=== PATIENT | male | born 1955 | race Caucasian/White ===

== ENCOUNTER 2020-05-28 09:22 | Emergency (ER) | payer BC ==
[2020-05-28 11:37] LABS: HEMOGLOBIN 10.6 gm/dl (14.0-17.5); RED BLOOD COUNT 3.48 M/UL (4.20-5.50); WHITE BLOOD COUNT 5.2 K/UL (4.5-11.0)
[2020-05-28 11:59] LABS: BUN/CREATININE RATIO 17 (0-10)
[2020-05-28] MEDS ORDERED: LEVOFLOXACIN750 MG PO (16:16)
[2020-05-28] MEDS ORDERED: VIBRAMYCIN 100100 MG PO (16:16)
== END 2020-05-28 16:27 | disposition home or self-care (01) ==
LOC: ER1 09:22
PROVIDERS: Emergency Medicine
DX: I10 Essential (primary) hypertension (principal); H70.90 Unspecified mastoiditis, unspecified ear
CPT/HCPCS: 70450; 80053; 82550; 82553; 84484; 85025; 93005; 99284; Q9967